=== PATIENT | female | born 1960 | race Caucasian/White ===

== ENCOUNTER 2018-10-29 20:50 | Emergency (ER) | payer OTHER ==
[~2018-10-29] VITALS: Ht 154.9 cm; Wt 72.7 kg
[~2018-10-29 20:50] MED LIST: ASPI-891 PO; IBUP-2276 PO
[2018-10-29] MEDS ORDERED: ATEN25TA PO (21:09)
[2018-10-29] MEDS ORDERED: AMLO2.5T4 PO (21:09)
[2018-10-29] MEDS ORDERED: SULFAMETHOX/TRIMETH DS 800-160 MG/TABLET PO ONE (22:15)
[2018-10-29] MEDS ORDERED: IBUPROFEN 600 MG TABLET PO ONE (22:15)
[2018-10-29 22:39] VITALS: BP 144/81
== END 2018-10-29 22:45 | disposition home or self-care (01) ==
LOC: EMS 20:51
DX: L03.031 Cellulitis of right toe (principal); E11.9 Type 2 diabetes mellitus without complications; I10 Essential (primary) hypertension; F17.210 Nicotine dependence, cigarettes, uncomplicated; Z79.82 Long term (current) use of aspirin; Z88.5 Allergy status to narcotic agent